=== PATIENT | male | born 1945 | race Caucasian/White ===

== ENCOUNTER 2017-07-15 17:31 | Emergency (ER) | payer OTHER ==
[~2017-07-15] VITALS: Ht 188 cm; Wt 100.0 kg
[~2017-07-15 17:31] MED LIST: ASPI325T PO; CLOP75 PO; ENAL5TAB98 PO; METO25 PO; ZOCO40TA PO
[2017-07-15 17:35] VITALS: BP 184/99; PULSE 79; RESP 18; TEMP 97.8; O2SAT 96
--- NOTE | 2017-07-15 17:50 | PD ---
HPI Chief Complaint: Back/ Neck Pain or Injury Time Seen by Provider: 17:50 Travel History International Travel<30 days: No Contact w/Intl Traveler<30days: No Traveled to known affect area: No History of Present Illness HPI 71-year-old male history of 3 stents presents emergency department with 3 day history of neck pain without history of injury. Patient describes as a gnawing pain across his upper neck and back. He has been using ice and icy hot and Tylenol without improvement. Pain is now 9 out of 10 and somewhat worse with certain movements, but he does not feel like there is a muscle spasm. He states today's pain is so uncomfortable it makes him nauseous. Patient denies shortness of breath or chest pain. He denies other symptoms. No recent fever or chills. He has no known drug allergies. PFSH Past Medical History Autoimmune Disease: No Blood Disorders: No Anxiety: No Depression: No Cancer: No Cardiovascular Problems: No Diabetes: No Endocrine: No Genitourinary: No Immune Disorder: No Musculoskeletal: No Neurologic: No Psychiatric: No Reproductive: No Respiratory: No Thyroid Disease: No Social History Alcohol Use: Yes (NOT EVERY DAY) Tobacco Use: Yes (04/09 PPD) Substance Use: No Allergies-Medications (Allergen,Severity, Reaction): Coded Allergies: No Known Allergies (Verified Adverse Reaction, Unknown, 07/15/17) Reported Meds & Prescriptions Reported Meds & Active Scripts Active Reported Fish Oil 1000 mg (Story-3 Fatty Acids) 300 Mg-1,000 Mg Cap Aspirin 325 Mg Tab 325 Mg PO DAILY Zetia (Ezetimibe) 10 Mg Tab 10 Mg PO DAILY Rosuvastatin (Rosuvastatin Calcium) 40 Mg Tab 40 Mg PO DAILY Metoprolol Tartrate 25 Mg Tab 25 Mg PO BID Review of Systems General / Constitutional: No: Fever Eyes: No: Visual changes HENT: No: Headaches Cardiovascular: No: Chest Pain or Discomfort Respiratory: No: Shortness of Breath Gastrointestinal: No: Abdominal Pain Genitourinary: No: Dysuria Musculoskeletal: No: Pain Skin: No Rash Neurologic: No: Weakness Psychiatric: No: Depression Endocrine: No: Polydipsia Hematologic/Lymphatic: No: Easy Bruising Physical Exam Narrative GENERAL: Patient is in moderate distress. He seems like he cannot get comfortable. SKIN: Warm and dry. Normal color. Normal turgor. No rash HEAD: Atraumatic. Normocephalic. EYES: Pupils equal and round. No scleral icterus. No injection or drainage. ENT: No nasal bleeding or discharge. Mucous membranes pink and moist. Pharynx is clear. Airways patent NECK: Trachea midline. No specific point tenderness or muscle spasm is noted on exam. No relief with cervical tension or worsening with cervical compression. CARDIOVASCULAR: Regular rate and rhythm. No murmurs gallops or rubs. RESPIRATORY: No accessory muscle use. Clear to auscultation. Breath sounds equal bilaterally. GASTROINTESTINAL: Abdomen soft, non-tender, nondistended. Hepatic and splenic margins not palpable. MUSCULOSKELETAL: Extremities without clubbing, cyanosis, or edema. No obvious deformities. NEUROLOGICAL: Awake and alert. No obvious cranial nerve deficits. Motor grossly within normal limits. Five out of 5 muscle strength in the arms and legs. Normal speech. PSYCHIATRIC: Appropriate mood and affect; insight and judgment normal. Data Data Last Documented VS Vital Signs Date Time Temp Pulse Resp B/P (MAP) Pulse Ox O2 Delivery O2 Flow Rate FiO2 07/15/17 17:35 97.8 79 18 184/99 (127) 96 Orders Orders Electrocardiogram (07/15/17 17:54) Ondansetron Odt (Zofran Odt) (07/15/17 18:00) Acetamin-Hydrocod 325-7.5 Mg ([place] 7.5 (07/15/17 18:00) Prednisone (Deltasone) (07/15/17 18:00) MDM Medical Decision Making Medical Screen Exam Complete: Yes Emergency Medical Condition: Yes Medical Record Reviewed: Yes Differential Diagnosis Neck pain. Possible angina. Muscle spasm. Narrative Course EKG is ordered. Patient took his 325 mg of aspirin this morning. Patient is given 60 mg prednisone p.o. Patient is given 7.5/325 mg Lortab 1 p.o. now. EKG is reassuring, with normal sinus rhythm without ST changes. This is reviewed with Dr. Alejandra. Patient will be continued on prednisone 20 mg twice daily for 5 days. Patient is also given Flexeril 10 mg up to 3 times daily as needed muscle spasm #15. Patient is given Lortab 5/325 one every 6 hours as needed pain #12. Patient is to use heat and ice and follow-up with his primary care physician as discussed. Patient can return to the emergency department if symptoms worsen. Diagnosis Primary Impression: Cervical pain (neck) Referrals: Primary Care Physician Patient Instructions: Acute Neck Pain (ED), Cervical Spinal Stenosis (ED), General Instructions Additional Instructions: Patient is given 60 mg prednisone p.o. Patient is given 7.5/325 mg Lortab 1 p.o. now. EKG is reassuring, with normal sinus rhythm without ST changes. This is reviewed with Dr. Alejandra. Patient will be continued on prednisone 20 mg twice daily for 5 days. Patient is also given Flexeril 10 mg up to 3 times daily as needed muscle spasm #15. Patient is given Lortab 5/325 one every 6 hours as needed pain #12. Patient is to use heat and ice and follow-up with his primary care physician as discussed. Patient can return to the emergency department if symptoms worsen. Med/Other Pt SpecificInfo: Prescription(s) given Disposition: 01 DISCHARGE HOME Condition: Stable Edu Roach Jul 15, 2017 17:50
[2017-07-15] MEDS ORDERED: ONDANSETRON ODT 4 MG TAB PO ONE (18:00)
[2017-07-15] MEDS ORDERED: predniSONE 20 MG TAB PO ONE (18:00)
[2017-07-15] MEDS ORDERED: ACETAMINOPHEN/HYDROcodone 325 MG/7.5 MG TAB PO ONE (18:00)
[2017-07-15] MEDS ORDERED: FISH100020 (18:16)
[2017-07-15] MEDS ORDERED: ASPI-183 PO (18:16)
[2017-07-15] MEDS ORDERED: ROSU1TAB10 PO (18:16)
[2017-07-15] MEDS ORDERED: EZET10 PO (18:16)
[2017-07-15] MEDS ORDERED: METO25TA3 PO (18:16)
[2017-07-15] MEDS ORDERED: HYDR-3516 PO (18:21)
[2017-07-15] MEDS ORDERED: CYCL10TA PO (18:21)
[2017-07-15] MEDS ORDERED: PRED20 PO (18:21)
--- NOTE | 2017-07-15 21:54 | EKG ---
Date Performed: 07/15/2017 Time Performed: 18:10:43 PTAGE: 71 years EKG: Sinus rhythm MODERATE INTRAVENTRICULAR CONDUCTION DELAY BORDERLINE ECG Compared to prior electrocardiogram, The r ate has increased and STT wave changes have resolved. PREVIOUS TRACING : 07/15/2017 18.08 DOCTOR: Walter Meneses Interpretating Date/Time 07/15/2017 21:52:50
== END 2017-07-15 18:27 | disposition home or self-care (01) ==
LOC: NEPK 17:31
DX: M54.2 Cervicalgia (principal); F17.200 Nicotine dependence, unspecified, uncomplicated; R11.0 Nausea; Z79.899 Other long term (current) drug therapy
CPT/HCPCS: 93005; 99283; J7512